=== PATIENT | male | born 1990 | race Asian ===

== ENCOUNTER 2018-09-26 07:04 | Emergency (ER) | payer MEDICAID ==
[~2018-09-26] VITALS: Ht 165.1 cm; Wt 83.9 kg
[2018-09-26] MEDS ORDERED: SODIUM CHLORIDE 0.9% 1,000 ML IV ONE ×2 (07:44)
[2018-09-26] MEDS ORDERED: LORazepam 2MG/ML-1ML VIAL IV ONE (08:45)
[2018-09-26] MEDS ORDERED: LEVETIRACETAM INJ 500 MG in D5W 5% 100 ML IV ONE (08:45)
[2018-09-26 09:20] LABS: Alanine Aminotransferase 80 U/L (16-61); Albumin 3.8 g/dL (3.4-5.0); Anion Gap 7 (5-15); Aspartate Aminotransferase 25 U/L (15-37); BUN/Creatinine Ratio 21.3; Basophils # (auto) 0 uL; Basophils % (auto) 0.4 % (0.0-2.0); Blood Urea Nitrogen 13 mg/dL (7-18); Calcium 8.1 mg/dL (8.5-10.1); Carbon Dioxide 26 mmol/L (21-32); Chloride 101 mmol/L (98-107); Eosinophils # (auto) 0 uL; GFR African American 201 mL/min; GFR Non-African American 166 mL/min; Glucose 147 mg/dL (74-106); Hematocrit 42.5 % (41.0-53.0); Lymphocytes # (auto) 0.5 uL; Lymphocytes % (auto) 5.4 % (10.0-50.0); Mean Corpuscular Hemoglobin 27.1 pg (28.0-32.0); Mean Corpuscular Hgb Conc. 33.1 g/dL (32.0-36.0); Mean Corpuscular Volume 81.9 fL (80.0-100.0); Monocytes # (auto) 0.6 uL; Monocytes % (auto) 7.5 % (0.0-12.0); Neutrophils # (auto) 7.5 uL; Neutrophils % (auto) 86.7 % (37.0-80.0); Platelet Count (auto) 337 10^3/uL (140-450); Potassium 3.9 mmol/L (3.5-5.1); Red Blood Cells 5.19 10^6/uL (4.5-5.90); Red Cell Distribution Width 18.3 % (11.8-14.3); Sodium 134 mmol/L (136-145); White Blood Cell 8.6 10^3/uL (4.4-10.8)
[2018-09-26 09:27] LABS: Alkaline Phosphatase 70 U/L (45-117); Bilirubin, Total 0.4 mg/dL (0.2-1.0); Total Protein 7.4 g/dL (6.4-8.2)
[2018-09-26 09:41] LABS: Partial Thromboplastin Time 23.6 sec (23.78-33.04); Prothrombin Time 10.7 sec (9.27-12.13)
[2018-09-26 12:25] VITALS: BP 125/66
== END 2018-09-26 12:41 | disposition short-term general hospital (02) ==
LOC: EDUNIT# 07:04 → ER 07:04 → EDBD 07:04 → ER 12:41
DX: G40.909 Epilepsy, unspecified, not intractable, without status epilepticus (principal)
CPT/HCPCS: 36415; 70450; 71045; 80053; 84484; 85025; 85610; 85730; 96361; 96365; 96375; 99285; J1953; J2060; J7030; J7060